=== PATIENT | male | born 1990 | race Caucasian/White ===

== ENCOUNTER 2022-01-10 17:52 | Emergency (ER) | payer OTHER ==
--- NOTE | 2022-01-10 18:15 | NUR ---
ATTEMPTED TO CALL PATIENT, NO ANSWER AT THIS TIME
--- NOTE | 2022-01-10 18:24 | NUR ---
ATTEMPTED TO CALL PATIENT, NO ANSWER AT THIS TIME
--- NOTE | 2022-01-10 18:38 | NUR ---
ATTEMPTED TO CALL PATIENT, NO ANSWER
--- NOTE | 2022-01-10 18:38 | NUR ---
PATIENT LEFT WITHOUT BEING SEEN BY DR. BALDERAS. NO FURTHER CARE PROVIDED FOR PATIENT.
== END 2022-01-10 18:15 | disposition left against medical advice (07) ==
LOC: MED 17:52
DX: R68.84 Jaw pain (principal); Z53.21 Procedure and treatment not carried out due to patient leaving prior to being seen by health care provider